=== PATIENT | female | born 1990 | race Caucasian/White ===

== ENCOUNTER 2020-09-14 15:43 | Emergency (ER) | payer OTHER, BC | END 2020-09-14 16:22 | disposition home or self-care (01) | LOC: ER1 15:43 | DX: O12.03 Gestational edema, third trimester (principal) | CPT/HCPCS: 93971; 99285 ==

== ENCOUNTER 2020-09-29 15:11 | Outpatient (CLI) | payer OTHER, BC | END 2020-09-29 18:01 | disposition home or self-care (01) | LOC: GENOP 15:11 | DX: O26.893 Other specified pregnancy related conditions, third trimester (principal); Z3A.37 37 weeks gestation of pregnancy | CPT/HCPCS: 81001; G0463 ==

== ENCOUNTER 2020-12-05 14:23 | Observation (INO) | payer BC ==
[~2020-12-05] VITALS: Ht 160 cm; Wt 81.6 kg
[2020-12-05 15:25] LABS: HEMOGLOBIN 12.3 gm/dl (12.3-15.3); RED BLOOD COUNT 4.95 M/UL (4.00-5.10)
[2020-12-05 15:54] LABS: BUN/CREATININE RATIO 21 (0-10)
[2020-12-05] MEDS ORDERED: IRON325 M1 PO (23:24)
[2020-12-05] MEDS ORDERED: THYROID PO (23:29)
[2020-12-06] MEDS ORDERED: HYDROCODON-ACE1 EAC4 PO (10:47)
== END 2020-12-06 11:40 | disposition home or self-care (01) ==
LOC: ER1 14:23 → CDU 19:14 → MED SURG 4 22:45
PROVIDERS: Physician Assistant; ADMIT Surgery
DX: K35.30 Acute appendicitis with localized peritonitis, without perforation or gangrene (principal); E03.9 Hypothyroidism, unspecified; F17.290 Nicotine dependence, other tobacco product, uncomplicated; Z86.16 Personal history of COVID-19; Z79.899 Other long term (current) drug therapy; Z20.822 Contact with and (suspected) exposure to COVID-19
CPT/HCPCS: 80053; 81001; 84703; 85025; 96374; 96375; 99285; G0378; J0670; J1100; J2001; J2250; J2405; J2543; J2550; J2704; J2710; J2765; J3010; J7120; Q9967; U0002

== ENCOUNTER 2021-07-06 20:27 | Emergency (ER) | payer BC ==
[~2021-07-06 20:27] MED LIST: HYDROCODON-ACE1 EAC4 PO; IRON325 M1 PO; THYROID PO
[2021-07-06 21:19] LABS: HEMOGLOBIN 11.5 gm/dl (12.3-15.3); RED BLOOD COUNT 4.66 M/UL (4.00-5.10); WHITE BLOOD COUNT 9.9 K/UL (4.5-11.0)
[2021-07-06 21:41] LABS: BUN/CREATININE RATIO 10 (0-10)
== END 2021-07-06 22:15 | disposition home or self-care (01) ==
LOC: ER1 20:27
PROVIDERS: Nurse Practitioner
DX: O03.9 Complete or unspecified spontaneous abortion without complication (principal); E03.9 Hypothyroidism, unspecified
CPT/HCPCS: 36415; 80053; 81001; 84702; 85025; 86900; 86901; 87086; 99284

== ENCOUNTER → 2021-07-25 | Outpatient (CLI) | payer BC ==
[~2021-07-25] MED LIST changes: +COLACE100 MG PO; +IBUPROFEN800 MG PO; +LEVOTHYROXINE75 MC1 PO; +PERCOCET 5/325 T1 EA PO
== END ==
LOC: LAB 17:24
DX: N91.2 Amenorrhea, unspecified (principal)
CPT/HCPCS: 84702

== ENCOUNTER → 2021-07-27 | Day surgery (SDC) | payer BC ==
[2021-07-27 06:57] LABS: HEMOGLOBIN 11.2 gm/dl (12.3-15.3); RED BLOOD COUNT 4.6 M/UL (4.00-5.10); WHITE BLOOD COUNT 7.6 K/UL (4.5-11.0)
== END | disposition home or self-care (01) ==
LOC: OR 05:40
PROVIDERS: Obstetrics & Gynecology
DX: O00.90 Unspecified ectopic pregnancy without intrauterine pregnancy (principal); E03.9 Hypothyroidism, unspecified; E66.01 Morbid (severe) obesity due to excess calories; Z87.891 Personal history of nicotine dependence; Z79.899 Other long term (current) drug therapy; Z20.822 Contact with and (suspected) exposure to COVID-19
CPT/HCPCS: 36415; 81001; 85025; J0690; J1100; J1885; J2001; J2250; J2405; J2704; J2710; J3010; J7120; U0002